=== PATIENT | female | born 1995 | race Caucasian/White ===

== ENCOUNTER → 2018-06-03 | Outpatient (CLI) | payer OTHER | LOC: LAB 09:37 | PROVIDERS: ATTEND Obstetrics & Gynecology | DX: Z11.3 Encounter for screening for infections with a predominantly sexual mode of transmission (principal); Z11.8 Encounter for screening for other infectious and parasitic diseases | CPT/HCPCS: 87491; 87591 ==

== ENCOUNTER → 2018-09-02 | Outpatient (CLI) | payer OTHER ==
--- NOTE | 2018-09-03 14:08 | RADIOLOGY IMAGING REPORT ---
[place]AC[place] [facility] [place] NAME: JANIYA HARTMAN : [id number] MR: [id number] V: [id number] EXAM DATE: ORDERING PHYSICIAN: LEANN LOPEZ TECHNOLOGIST: Claribel Brush RT(R)(CT) PROCEDURE:US RIGHT BREAST COMPARISON:None. INDICATIONS:Right breast mass lateral aspect of the Right breast. AREA SCANNED: The Right breast was imaged in the 8-11 o'clock position. FINDINGS: No sonographic abnormality identified to account for patient's palpable finding. Therefore, clinical follow up recommended. DIAGNOSTIC CATEGORY 1--NEGATIVE. RECOMMENDATIONS: CLINICAL EVALUATION. IMPRESSION: BIRADS 1: Negative. Therefore, clinical evaluation recommended. Dictated by: Donna Cherry M.D. on 09/02/2018 at 16:30 Transcribed by: NESTOR on 09/03/2018 at 13:59 Approved by: Donna Cherry M.D. on 09/03/2018 at 14:05 [facility]
== END ==
LOC: US 00:14
PROVIDERS: ATTEND Family Medicine
DX: N63.10 Unspecified lump in the right breast, unspecified quadrant (principal)